=== PATIENT | female | born 1990 | race Caucasian/White ===

== ENCOUNTER 2020-08-09 14:11 | Outpatient (RCR) | payer OTHER, SELFPAY ==
[2020-07-05 16:35] LABS: Add Urine Microscopic? YES; Appearance Urine Cloudy (Clear); Bacteria Urine Trace /hpf; Bilirubin Urine Negative (Negative); Blood Urine Negative (Negative); Color Urine Straw (Yellow); Glucose Urine UA Negative (Negative); Ketones Urine Negative (Negative); Leukocyte Esterase Ur Negative LEU/UL (Negative); Nitrate Urine Negative (Negative); Protein Urine Negative (Negative); Squamous Epithelial Cell Urine Many /hpf (Few); Urobilinogen Urine Negative mg/dL (<2.0); WBC Urine 0-3 /hpf
[2020-07-05 16:48] LABS: Specific Grav Ur 1.004 (1.001-1.035)
[2020-07-05 16:54] LABS: Fetal Fibronectin Negative
[2020-07-22 14:39] VITALS: BP 112/69; PULSE 75
--- NOTE | ~2020-08-09 | US_ITS ---
US OB limited 08/09/2020 15:40 Indication: decelerations. Procedure: Realtime limited transabdominal obstetrical ultrasound Comparison: Ultrasound dated 07/05/2020 Findings: There is a single living intrauterine in vertex presentation. Placenta is posteri or without previa. heart rate is 141 BPM. Amniotic fluid is normal with AL measuring 13.95 cm (normal range for gestational age is 7.3-23.9 cm). Impression: 1: Single living intrauterine in vertex presentation. 2: Normal AL measures 13.95 cm. Reviewed, dictated and finalized at location A. Impression: 1: Single living intrauterine in vertex presentation. 2: Normal AL measures 13.95 cm.
--- NOTE | ~2020-08-09 | US_ITS ---
EXAMINATION: US OB limited DATE: 07/05/2020 16:34 INDICATION: Change in heart rate during third trimester . Assess amniotic fluid index. TECHNIQUE: Real-time ultrasound of the pelvis was performed. The interpreting radiologist was not pre sent for the study. COMPARISON: None. FINDINGS: There is a single living fetus in vertex presentation. The placenta is posterior. heart rate i s 139 beats per minute (bpm). The amniotic fluid index is 18.3 cm, which is normal (5th%-95%: 8.3-24. 5 cm at 33 weeks estimated gestational age) . IMPRESSION: 1. Single living fetus in vertex presentation with heart rate of 139 bpm. 2. Normal amniotic fluid index of 18.3 cm. Reviewed, dictated and finalized at location A. IMPRESSION: 1. Single living fetus in vertex presentation with heart rate of 139 bpm . 2. Normal amniotic fluid index of 18.3 cm.
== END 2020-08-16 07:47 | disposition home or self-care (01) ==
LOC: ANHOBOP 14:11
PROVIDERS: PCP Family Medicine Adolescent Medicine; Visit Provider Obstetrics & Gynecology
DX: O36.8330 Maternal care for abnormalities of the fetal heart rate or rhythm, third trimester, not applicable or unspecified (principal); Z3A.33 33 weeks gestation of pregnancy; O36.8930 Maternal care for other specified fetal problems, third trimester, not applicable or unspecified; Z3A.35 35 weeks gestation of pregnancy; Z3A.38 38 weeks gestation of pregnancy
CPT/HCPCS: 59025; 76815; 81001; 82731

== ENCOUNTER 2020-08-15 22:19 | Inpatient (IN) | payer OTHER, SELFPAY ==
--- NOTE | 2020-08-15 22:19 | LDADM ---
This patient, Susu Horn, was admitted to Labor/Delivery/Recovery 107 on 08/15/20 at 22:19. Plans for labor, pain management and were discussed with patient. Patient/family oriented to hospital policies and general routines including ID bracelet, bed and alarms, visiting hours, pain management, procedures, bathroom and other care routines, personal items, smoking policy, room service/diet and guest tray routines, security routines, and visiting hours. Patient/Family are encouraged to report perceived risks to care and to ask questions if they do not understand what they are told or what they should do. See OBIX for further documentation.
[2020-08-15 22:41] VITALS: RESP 20; TEMP 36.6
[2020-08-15 22:46] VITALS: BP 121/88; PULSE 77
[2020-08-15 22:54] VITALS: BMI 25.9
[2020-08-15 23:07] VITALS: BP 142/81; PULSE 61
[2020-08-15 23:16] VITALS: BP 145/78; PULSE 64
[2020-08-15 23:18] LABS: Basophils Percent Auto 0.3 % (0.2-1.2); Eosinophils Absolute Auto 0.1 K/mm3 (0-0.3); Eosinophils Percent Auto 0.5 % (0-4.4); Hematocrit 35.8 % (37.0-47.0); Hemoglobin 12.4 g/dL (12.0-15.0); Immature Granulocyte Absolute 0.16 K/mm3 (0.00-0.031); Immature Granulocyte Percent A 1.1 % (0-0.5); Lymphocytes Absolute Auto 2.65 K/mm3 (0.9-3.2); Mean Corpuscular HGB Conc 34.6 g/dl (32-36); Mean Corpuscular Hemoglobin 30.8 pg (26-34); Mean Corpuscular Volume 89.1 fl (80-100); Mean Platelet Volume 9.5 fl (7.4-10.4); Monocytes Absolute Auto 1.1 K/mm3 (0.1-0.6); Monocytes Percent Auto 7.3 % (2.6-8.5); Neutrophils Absolute Auto 10.7 K/mm3 (1.3-6.7); Neutrophils Percent Auto 72.8 % (45.5-73.1); Platelet Count Result 277 k/mm3 (150-375); Red Blood Count 4.02 M/mm3 (4.2-5.4); Red Cell Distribution Width 12.7 % (11.5-14.5); White Blood Count 14.7 K/mm3 (4.5-10.0)
[2020-08-15 23:30] VITALS: TEMP 36.9
[2020-08-16] VITALS (61 sets, daily range): BP systolic 61–135; BP diastolic 34–113; PULSE 52–188; RESP 16–20; TEMP 36.4–37.6; O2SAT 95–100
[2020-08-16] MEDS: LACTATED RINGERS 1,000 ML 125 ML IV CONT ×2 (01:16→01:40)
--- NOTE | 2020-08-16 01:20 | WPDANESEPPF ---
Anes - Initial Pre Proc Eval Procedure: labor epidural Date/Time: 08/16/20 01:20 Surgeon: Sherwin Donnelly MD Pre Op Diagnosis: labor pain Pre Op Diagnosis: Leaking fluid Patient Data Age: 29 Gender: F Height: 1.7 m Weight: 75 kg Last Vital Signs Temp 36.9 C 08/15/20 23:30 Pulse 53 L 08/16/20 01:19 Resp 20 08/15/20 22:41 BP 126/73 08/16/20 01:19 Allergies Allergy/AdvReac Type Severity Reaction Status Date / Time No Known Allergies Allergy Mild Verified 08/09/20 13:26 Home Medications Medication Instructions Recorded Confirmed Type prenat.vits,fahad,zmz-[id number] 1 tablet PO DAILY 12/30/19 08/15/20 History calcium carbonate 260 mg calcium 520 mg PO DAILY tablet 06/21/20 08/15/20 History (650 mg) chewable tablet Laboratory Tests 08/15/20 08/15/20 23:03 23:03 WBC 14.7 K/mm3 H K/mm3 (4.5-10.0) RBC 4.02 M/mm3 L M/mm3 (4.2-5.4) Hgb 12.4 g/dL g/dL (12.0-15.0) Hct 35.8 % L % (37.0-47.0) MCV 89.1 fl fl (80-100) MCH 30.8 pg pg (26-34) MCHC 34.6 g/dl g/dl (32-36) RDW 12.7 % % (11.5-14.5) Plt Count 277 k/mm3 k/mm3 (150-375) MPV 9.5 fl fl (7.4-10.4) Immature Gran % (Auto) 1.1 % H % (0-0.5) Neut % (Auto) 72.8 % % (45.5-73.1) Lymph % (Auto) 18.0 % L % (18.3-44.2) [place] % (Auto) 7.3 % % (2.6-8.5) Eos % (Auto) 0.5 % % (0-4.4) Baso % (Auto) 0.3 % % (0.2-1.2) Lymph # (Auto) 2.65 K/mm3 K/mm3 (0.9-3.2) [place] # (Auto) 1.1 K/mm3 H K/mm3 (0.1-0.6) Eos # (Auto) 0.1 K/mm3 K/mm3 (0-0.3) Baso # (Auto) 0.0 K/mm3 K/mm3 (0.0-0.1) Abs Immat Gran (auto) 0.16 K/mm3 H K/mm3 (0.00-0.031) Absolute Neuts (auto) 10.7 K/mm3 H K/mm3 (1.3-6.7) Absolute Nucleated RBC 0.0 K/mm3 K/mm3 (0.0-0.012) Nucleated RBC % 0.0 % % (0.0-0.2) RPR Pending Patient hx anesthesia problems: none Family hx anesthesia problems: none PMFSH Past Medical History Medical History History of vaginal delivery x 1 Miscarriage x1 Surgical History Surgical History [place] teeth extracted Family History Family History Grandparent Carcinoma of colon Lung cancer Social History Social History Smoking status: Never smoker Alcohol intake: never Substance use: never Substance use type: marijuana Gender identity (if verbalized by the patient): Female Spiritual care concerns: No Anes - Eval Final PreProcedure Day of Procedure 08/16/20 01:20 Patient weight: overweight ASA classification: II Anesthesia type and monitoring: regional epidural Informed Consent: The patient's anesthetic plan and its attendant risks and benefits were discussed with the patient/family/POA. Questions were solicited and answers provided to the satisfaction of the patient/family/POA.
[2020-08-16] MEDS: OXYTOCIN 30 UNITS/NS 500 ML 30 UNITS/500 ML BAG 999 UNITS IV CONT (03:32)
[2020-08-16] MEDS: OXYTOCIN 30 UNITS/NS 500 ML 30 UNITS/500 ML BAG 125 UNITS IV CONT (04:08)
[2020-08-16] MEDS: WITCH HAZEL 40 PADS 1 PAD TOPICAL (05:36)
[2020-08-16] MEDS: BENZOCAINE 20% AER SPR (*SP) 56 GM CAN 1 SPRAY TOPICAL (05:36)
--- NOTE | 2020-08-16 06:15 | PC.NURSE ---
Patient transferred to post room #286 via wheelchair. Support person present. Oriented to unit, room, information board, rooming in, admission packet and security measures. Patient verbalizes understanding.
[2020-08-16 07:00] LABS: Rapid Plasma Reagin Non-Reactive (NonReactive)
--- NOTE | 2020-08-16 07:15 | PC.NURSE ---
Mother called out for assist with feeding. Mother reports infant was eager for first feeding. Mother's 1st was 34 weeks, she breast and bottle fed infant. Reviewed infant feeding cues, frequencies, duration of feedings, feeding elimination flow sheet, and signs of adequate intake. Demonstrated stimulation techniques to wake infant for feeding. Assisted with infant to breast. Reviewed positioning/alignment in cross cradle, holding breast in ?U? hold and guided asymmetrical latch on. Infant able to latch correctly. Reviewed signs of a correct latch, effective nursing and suck swallow ratio. Infant was able to maintain latch without discomfort to mother. would slip to shallow latch, mother reports tenderness. Demonstrated how to adjust latch more deeply while feeding. Mother reports she can feel change in latch and has no tenderness. Nipple care reviewed of lanolin after feedings, warm compresses as needed. Suggested mother stimulate while feeding to increase stimulate, increase intake and to assist with maintaining deep latch. Instructed mother to call out for RN assistance if she is unable to latch for feeding or she has discomfort with nursing. Instructed feeding should be initiated three hours from start of last feeding or if feeding cues are noted before. Mother voiced understanding of information shared.
[2020-08-16] MEDS: MULTIVIT/MIN/PREN/FOL AC/IRON TABLET 1 TAB PO (07:22)
[2020-08-16] MEDS: IBUPROFEN 600 MG TABLET PO ×2 (07:22→16:29)
--- NOTE | 2020-08-16 12:57 | PM.IMHP ---
H&P: HPI History of Present Illness Date/Time: 08/16/20 12:57 Pt admitted for SROM clear fluid. Cervix on admission 3/75%/-2. She is 39 weeks by LMP which was consistent with first trimester ultrasound. PNC significant for history of PPROM with prior at 33 weeks. She had surveillance with ultrasound in second trimester which her cervix was reassuring. Labs reviewed. GBS neg. Chief Complaint: Contractions and leaking of fluid Review of Systems Review of Systems: All systems reviewed & are unremarkable except as noted in HPI and below Constitutional: Constitutional: Reports no additional constitutional complaints and Denies headache(s) Eyes: Eyes: Denies spots in vision ENT: Reports system reviewed and no additional complaints, except as documented and Denies headache(s) Cardiovascular: Cardiovascular: Denies chest pain and Denies dyspnea Respiratory: Respiratory: Denies dyspnea Gastrointestinal: Gastrointestinal: Reports no additional gastrointestinal complaints Genitourinary: Genitourinary: Reports amenorrhea Musculoskeletal: Musculoskeletal: Reports no additional musculoskeletal complaints Integumentary/Breasts: Skin/Breast: Denies breast mass and Denies rash Neurologic: Denies headache(s) Psychiatric: Psychiatric: Reports no additional psychiatric complaints [facility] Past Medical History Medical History History of vaginal delivery x 1 Miscarriage x1 Surgical History Surgical History [place] teeth extracted Family History Family History Grandparent Carcinoma of colon Lung cancer Social History Social History Smoking status: Never smoker Alcohol intake: never Substance use: never Substance use type: marijuana Gender identity (if verbalized by the patient): Female Spiritual care concerns: No Meds Home Medications and Allergies Home Medications Medication Instructions Recorded Confirmed Type prenat.vits,fahad,yde-aups-pisac 1 tablet PO DAILY 12/30/19 08/15/20 History calcium carbonate 260 mg calcium 520 mg PO DAILY tablet 06/21/20 08/15/20 History (650 mg) chewable tablet Allergies Allergy/AdvReac Type Severity Reaction Status Date / Time No Known Allergies Allergy Mild Verified 08/09/20 13:26 Vital Signs Vital Signs - 24 hr 08/15/20 22:41 08/15/20 22:46 08/15/20 23:07 Temperature 97.9 F Pulse Rate 77 61 Respiratory Rate 20 Blood Pressure 121/88 142/81 H Pulse Oximetry 08/15/20 23:16 08/15/20 23:30 08/16/20 00:10 Temperature 98.4 F Pulse Rate 64 60 Respiratory Rate Blood Pressure 145/78 H 131/77 Pulse Oximetry 08/16/20 01:19 08/16/20 01:27 08/16/20 01:29 Temperature Pulse Rate 53 L 59 L Respiratory Rate Blood Pressure 126/73 125/77 Pulse Oximetry 97 08/16/20 01:30 08/16/20 01:31 08/16/20 01:32 Temperature Pulse Rate 64 60 Respiratory Rate Blood Pressure 126/82 135/71 Pulse Oximetry 100 08/16/20 01:34 08/16/20 01:35 08/16/20 01:37 Temperature Pulse Rate 61 63 52 L Respiratory Rate Blood Pressure 121/85 114/70 125/69 Pulse Oximetry 100 08/16/20 01:40 08/16/20 01:42 08/16/20 01:43 Temperature Pulse Rate 60 54 L Respiratory Rate Blood Pressure 131/69 127/73 Pulse Oximetry 99 08/16/20 01:46 08/16/20 01:47 08/16/20 01:49 Temperature 98.1 F Pulse Rate 55 L 55 L 55 L Respiratory Rate Blood Pressure 122/77 122/77 126/72 Pulse Oximetry 100 08/16/20 01:52 08/16/20 01:55 08/16/20 01:57 Temperature Pulse Rate 54 L 57 L Respiratory Rate Blood Pressure 118/72 115/73 Pulse Oximetry 99 99 08/16/20 01:58 08/16/20 02:01 08/16/20 02:02 Temperature Pulse Rate 58 L 68 Respiratory Rate Blood P
--- NOTE | 2020-08-16 13:25 | PC.NURSE ---
Observed mother is able to independently latch with appropriate positioning/alignment. She denies any nipple discomfort, is nursing eagerly with steady draws. Mother will stimulate to keep awake and nursing effectively. Instructed mother to call out for future feedings if assistance is needed.
--- NOTE | 2020-08-16 14:16 | PM.OBPRVD ---
OB - Delivery Note Procedure Delivery date: 08/16/20 Procedure: Spontaneous vaginal delivery Induction method: none Delivery monitor: external FHT Route of delivery: Laceration Description: Perineal - 1st Degree Delivery repair: vicryl (3.0 vicryl) Specimen: Yes (Cord blood and gases) Quantitative Blood Loss (ml): 150 Anesthesia type: Epidural Disposition: floor Complications: none Narrative: patient admitted in active labor with spontaneous rupture of membranes clear. Her cervix on admission was 3 cm dilated and 80% effaced. She progressed to complete. With pushing she did have some early deceleration she did get some oxygen and she delivered a male there was a tight nuchal cord x1 surgically reduced. infant was vigorously crying upon delivery and placed on maternal abdomen. Cord blood was obtained and cord gases obtained. Placenta delivered spontaneously and intact. She sustained a small first-degree perineal laceration repaired with several simple stitches of 3 O Vicryl. Baby Date of : 08/16/20 Time of : 03:27 Weeks of gestation at delivery: 39 gender: Male Weight (pounds): 7 Weight (ounces): 14 presentation: vertex position: Left Occiput Anterior Placenta delivery description: Spontaneous cord vessel description: Nuchal Cord ( x1) and Tight ( surgically reduced) score one minute: 8 score five minutes: 9
[2020-08-17 01:00] VITALS: BP 119/69; PULSE 71; RESP 16; TEMP 36.7
[2020-08-17] MEDS: IBUPROFEN 600 MG TABLET PO ×2 (04:40→11:30)
[2020-08-17 05:58] LABS: Hematocrit 30.3 % (37.0-47.0); Hemoglobin 10.3 g/dL (12.0-15.0)
--- NOTE | 2020-08-17 07:25 | WPDANLDPN2 ---
Anes-Prog Note L&D Date/Time: 08/17/20 07:25 Comfortable throughout: labor and delivery Neuraxial method: epidural Epidural/Spinal procedure site: clean & non-tender Neuro status: Neuro function grossly intact. Cardiovascular status: normal Respiratory status: normal Airway patency: baseline Mental status: baseline Post-Op hydration status: normal Vital Signs: Last Vital Signs Temp 36.7 C 08/17/20 01:00 Pulse 71 08/17/20 01:00 Resp 16 08/17/20 01:00 BP 119/69 08/17/20 01:00 Pulse Ox 99 08/16/20 16:15 Pain score (VAS): 03/26 Post-procedural complaints: none Patient feedback: Patient satisfied with anesthetic care.
[2020-08-17 08:00] VITALS: BP 112/72; BP 119/69; PULSE 56; PULSE 71; RESP 16; RESP 18; TEMP 36.5; TEMP 36.7; O2SAT 99
[2020-08-17] MEDS: DOCUSATE SODIUM 100 MG CAPSULE PO (08:23)
[2020-08-17] MEDS: WITCH HAZEL 40 PADS 1 PAD TOPICAL (08:23)
[2020-08-17] MEDS: MULTIVIT/MIN/PREN/FOL AC/IRON TABLET 1 TAB PO (08:23)
[2020-08-17] MEDS: BENZOCAINE 20% AER SPR (*SP) 56 GM CAN 1 SPRAY TOPICAL (08:23)
--- NOTE | 2020-08-17 09:30 | PC.NURSE ---
Patient was given the opportunity to view the discharge video Mother & Baby Care, The First Two Weeks and to ask questions. Patient declined viewing the video and has been given the mother/baby guide for home reference.
--- NOTE | 2020-08-17 10:03 | PC.NURSE ---
Self care and infant care discharge instructions given including follow up visit date and time. Mother verbalized understanding. No questions or concerns voiced. Very pleasant and cooperative. FOB at side.
--- NOTE | 2020-08-17 12:15 | PC.NURSE ---
Observed mother is able to independently latch with appropriate positioning/alignment. She denies any nipple discomfort, is feeding as required and waking to feed if needed. nurses eagerly with long rhythmic draws and frequent swallowing noted. Motheris feeding as required and waking to feed if needed. has had at least 8 effective feedings in the past 24 hours, and is currently meeting outcomes for weight, output, jaundice and feeding frequencies. Mother states she feels confident to continue effective at home. Reviewed transition to breast milk, signs of adequate intake, and engorgement/relief. Instructed to call ICP if intake/output less than required. Reviewed regular medications mother is taking. Information provided per [place]. Reviewed community resources on the [facility] website and in the Mom/Baby guide. Information on outpatient services provided. Mother has no further questions at this time.
[2020-08-18 10:55] VITALS: BP 118/67; PULSE 63; RESP 16; TEMP 36.6; O2SAT 99
--- NOTE | 2020-09-13 00:02 | PM.OBDSVD ---
DS: Admitting Diagnosis Admitting Diagnosis Admitting Diagnosis: Spontaneous rupture of membrane. DS: Discharge Diagnosis Discharge Diagnosis (1) Delivery normal: Code(s): O80 - Encounter for full-term uncomplicated delivery Status: Acute OB - DS: Summary Hospital Course Hospital Course: Patient was admitted after confirmed spontaneous rupture of membranes. She progressed into active labor and had a vaginal delivery. she did well. course uncomplicated. She was discharged to home on day 2. She was ambulating well. Tolerating regular food and had adequate pain control. OB Procedures : Ultrasound OB Procedures Intrapartum: Spontaneous Vag Delivery OB Procedures: : None Peripartum Data Delivery Method: Natural Vaginal Laceration Description: Perineal - 1st Degree complications: none Status at Discharge Functional status at discharge: independent ambulation Time Spent with Patient Time attestation: Total time spent providing and/or coordinating discharge services: Exam Const: General: cooperative HENMT: General nose exam: Normal external nose present Eyes: General: appearance normal, both eyes and all related structures Resp: Effort & Inspection: normal respiratory effort GI: Inspection: normal to inspection Skin: General skin exam: normal color Neuro: General: oriented to person, oriented to place and oriented to time Extrem: General: normal to inspection and no calf tenderness Psych: Appearance: grossly normal Mental Status: mental status grossly normal Discharge Plan Discharge Attending physician on discharge: Sherwin Donnelly Consulting providers: Malcom Davis Discharging Clinician: Sherwin Donnelly Anticipated Discharge Date/Time: 08/17/20 11:02 Patient Disposition: Home, Self-Care Activity: no straining and pelvic rest Diet: regular Discharge Instructions: Education: Mom and Baby Guide Given to: Mother Follow-Up: Call your delivering provider's office for an appointment to be seen in: 4 Weeks Mom and baby should come to the [facility] for the follow-up appointment. Appointment Date/Time: Tuesday August 18, 2020 at 11:00 am What to expect at your follow-up visit: Blood Pressure Check Physical Assessment Call [phone] if you are unable to keep your appointment time. BREAST CARE: * Wear a snug supportive bra. * For engorgement discomfort: Breast Feeding: * Apply warm moist washcloths * Express milk as needed to relieve engorgement * Wear loose clothing * For sore nipples: * Identify correct latch-on * Apply warm moist washcloths before and after nursing * Air dry nipples after nursing * May apply Lansinoh cream to nipples EPISIOTOMY/PERINEAL CARE * Until bleeding stops, use your greyson bottle after urinating * Change your pad frequently throughout the day * You may take sitz baths several times a day (fill your bathtub with warm water and soak for 20 minutes.) Do NOT bathe in the water * No tub baths until seen by your physician - You may shower ACTIVITY: * Rest as much as possible. * Do not exercise or lift anything heavier than your baby (such as laundry or other children.) * Avoid stairs or driving as much as possible. * Do not put anything into the vagina. No douching, tampons, or sexual activity until seen by physician. NOTIFY PHYSICIAN IF YOU HAVE ANY QUESTIONS OR IF ANY OF THE FOLLOWING SYMPTOMS OCCUR: * If your episiotomy becomes red, swollen, or more painful than what you have experienced in the hospital. * If your vaginal bleeding becomes foul smelling. * If your vaginal bleeding becomes more heavy than a period or if your bleeding changes from pink to bright red. However, you may pass an occasional walnut-sized clot once or twice for the first week . * If
== END 2020-08-17 14:23 | disposition home or self-care (01) | DRG 807 ==
LOC: ANHLDR 22:55 → ANHOB2 08-16 06:17
PROVIDERS: Admitting Provider Obstetrics & Gynecology; PCP Family Medicine Adolescent Medicine; Visit Provider Obstetrics & Gynecology
DX: O69.1XX0 Labor and delivery complicated by cord around neck, with compression, not applicable or unspecified (principal); Z37.0 Single live birth; O70.0 First degree perineal laceration during delivery; Z3A.39 39 weeks gestation of pregnancy
CPT/HCPCS: 36415; 84112; 85014; 85018; 85025; 86592; 86850; 86900; 86901; A9270; J2590; J7120

== ENCOUNTER 2021-05-28 10:33 | Outpatient (CLI) | payer OTHER, SELFPAY ==
--- NOTE | ~2021-05-28 | US_ITS ---
EXAMINATION: US OB follow up DATE: 05/28/2021 11:30 INDICATION: Hemorrhage. Early . Gestational dating. TECHNIQUE: Real-time transabdominal obstetric ultrasound. FINDINGS: No prior studies for comparison. There is a single living fetus in transverse presentation. The placenta is fundal/posterior without placenta previa. cardiac activity and movement is noted with a heart rate of 157 beats per minute. T he amniotic fluid volume is subjectively normal. The following biometric data were obtained: BPD: 33mm corresponds to gestational age 16 weeks 2 days. Head circumference: 124mm corresponds to gestational age 16 weeks 2 days. Abdominal circumference: 104mm corresponds to gestational age 16 weeks 3 days. Femur length: 18mm corresponds to gestational age 15 weeks 3 days. Estimated weight: 141grams +/- 21grams.] IMPRESSION: 1. Single living intrauterine in transverse presentation with an estimated gestational age of 16 weeks 1 days by current ultrasound. EDC by current examination is 11/11/2021. 2. Normal placenta. Reviewed, dictated and finalized at location B. IMPRESSION: 1. Single living intrauterine in transverse presentation with an est imated gestational age of 16 weeks 1 days by current ultrasound. EDC by current examination is 11/11/2021. 2. Normal placenta.
== END 2021-05-28 10:34 | disposition home or self-care (01) ==
PROVIDERS: PCP Family Medicine Adolescent Medicine; Visit Provider Obstetrics & Gynecology
DX: O20.9 Hemorrhage in early pregnancy, unspecified (principal); Z3A.16 16 weeks gestation of pregnancy
CPT/HCPCS: 76816

== ENCOUNTER 2021-10-25 08:35 | Outpatient (RCR) | payer OTHER, SELFPAY ==
[2021-10-22 13:02] VITALS: BP 110/72; PULSE 81
--- NOTE | 2021-10-22 14:06 | PC.NURSE ---
1405- Spoke with Dr. Donnelly, AL 6.7, orders for patient to come back on for a repeat AL and NST.
--- NOTE | ~2021-10-25 | US_ITS ---
US OB limited DATE: 10/25/2021 09:46 INDICATION: Low amniotic fluid volume. Major AL. TECHNIQUE: Real-time imaging and Doppler analysis COMPARISON: 10/22/2021 Limited obstetrical ultrasound examination FINDINGS: Live chauhan intrauterine gestation, fetus in vertex presentation with heart rate of 135 bpm. Fundal placenta. Amniotic fluid index measures 7.0 cm, which is below the 5th percentile of 7.5 cm. IMPRESSION: Amniotic fluid index measures 7.0 cm, which is below the 5th percentile AL of 7.5 cm Reviewed, dictated and finalized at Location A. Reviewed, dictated and finalized at location B. IMPRESSION: Amniotic fluid index measures 7.0 cm, which is below the 5th percen tile AL of 7.5 cm
--- NOTE | ~2021-10-25 | US_ITS ---
US OB limited DATE: 10/22/2021 13:43 INDICATION: Low heart rate in office. TECHNIQUE: Real-time imaging and Doppler analysis COMPARISON: 05/28/2021 obstetrical ultrasound FINDINGS: Live chauhan intrauterine gestation, fetus in longitudinal lie, vertex presentation, with heart rate of 157 bpm. Fundal placenta. Amniotic fluid index measures 6.7 cm, below the 5th percentile of 7.5 cm. IMPRESSION: Amniotic fluid index 6.7 cm, below the 5th percentile of 7.5 cm heart rate of 157 bpm Reviewed, dictated and finalized at Location A. Reviewed, dictated and finalized at location B.
[2021-10-25 09:23] VITALS: BP 101/70; PULSE 97
--- NOTE | 2021-10-25 10:02 | PC.NURSE ---
AL=7. Called reported NST and AL results. states she will see pt in office for regular appt. No further NST or US ordered at this time.
== END 2021-12-12 10:06 | disposition home or self-care (01) ==
LOC: ANHOBOP 08:35
PROVIDERS: PCP Family Medicine Adolescent Medicine; Visit Provider Obstetrics & Gynecology
DX: O36.8330 Maternal care for abnormalities of the fetal heart rate or rhythm, third trimester, not applicable or unspecified (principal); Z3A.37 37 weeks gestation of pregnancy
CPT/HCPCS: 59025; 76815

== ENCOUNTER 2021-11-01 12:33 | Observation (INO) | payer OTHER, SELFPAY ==
[2021-11-01] VITALS (8 sets, daily range): BP systolic 107–126; BP diastolic 69–80; PULSE 80–87; TEMP 37
--- NOTE | ~2021-11-01 | US_ITS ---
EXAMINATION: US OB limited DATE: 11/01/2021 14:21 INDICATION: Oligohydramnios. Third trimester. TECHNIQUE: Real-time ultrasound of the pelvis was performed. COMPARISON: Ultrasound 10/25/2021 FINDINGS: There is a single fetus in vertex presentation. The placenta is fundal. heart rate is 136 beat s per minute (bpm). The amniotic fluid index is 9.5 cm, which is normal. IMPRESSION: 1. Single living fetus in vertex presentation. 2. Normal amniotic fluid index. Reviewed, dictated and finalized at location A.
--- NOTE | 2021-11-01 13:30 | OBADM ---
This patient, Susu Horn, admitted to the OB room Labor/Delivery/Recovery 107 for observation. Patient/family oriented to hospital policies and general routines including ID bracelet, bed and alarms, visiting hours, pain management, procedures, bathroom and other care routines, personal items, smoking policy, room service/diet, and visiting hours. Patient/Family are encouraged to report perceived risks to care and to ask questions if they do not understand what they are told or what they should do.
--- NOTE | 2021-11-23 14:52 | PM.OBTRLD ---
OB - Triage/Final Diagnosis Visit Information Comments/Additional reasons for admission: I have assessed the risk for this patient, Susu Horn, and determined that she would benefit from observation care. Final Diagnosis (1) Vaginal discharge during : Code(s): O26.899 - Other specified related conditions, unspecified trimester; N89.8 - Other specified noninflammatory disorders of vagina Status: Acute
== END 2021-11-01 16:41 | disposition home or self-care (01) ==
PROVIDERS: Admitting Provider Student in an Organized Health Care Education/Training Program; PCP Family Medicine Adolescent Medicine; Visit Provider Student in an Organized Health Care Education/Training Program
DX: O26.893 Other specified pregnancy related conditions, third trimester (principal); N89.8 Other specified noninflammatory disorders of vagina; Z3A.38 38 weeks gestation of pregnancy
CPT/HCPCS: 76815; 84112; G0378; G0379

== ENCOUNTER 2021-11-14 16:01 | Inpatient (IN) | payer OTHER, SELFPAY ==
--- NOTE | 2021-11-01 17:23 | PC.NURSE ---
Preadmission information entered on 10/12/21 by Casey Holley RN copied to this V#.
[2021-11-14] VITALS (12 sets, daily range): BP systolic 101–132; BP diastolic 71–93; PULSE 58–85; RESP 18; TEMP 36.8; BMI 25.9
[2021-11-14] MEDS: OXYTOCIN 30 UNITS/NS 500 ML 30 UNITS/500 ML BAG 999 UNITS IV CONT (16:34)
[2021-11-14] MEDS: fentaNYL CITRATE INJ (*CRX) 100 MCG/2 ML VIAL 50 MCG IV PUSH (16:42)
--- NOTE | 2021-11-14 16:50 | PM.IMHP ---
H&P: HPI History of Present Illness Date/Time: 11/14/21 16:50 Chief Complaint: Delivery Narrative: She is a at 40 3/7 weeks by 16 week ultrasound admitted via ambulance after home delivery. She had SROM at 1245 clear fluid. She then started having strong contractions 2 hours afterward and had delivery at home. was crying spontaneously. Placenta was still inutero on arrival. Review of Systems Review of Systems: All systems reviewed & are unremarkable except as noted in HPI and below Constitutional: Constitutional: Reports no additional constitutional complaints and Denies headache(s) Eyes: Eyes: Denies spots in vision ENT: Reports system reviewed and no additional complaints, except as documented and Denies headache(s) Cardiovascular: Cardiovascular: Denies chest pain and Denies dyspnea Respiratory: Respiratory: Denies dyspnea Gastrointestinal: Gastrointestinal: Reports no additional gastrointestinal complaints Genitourinary: Genitourinary: Reports amenorrhea Musculoskeletal: Musculoskeletal: Reports no additional musculoskeletal complaints Integumentary/Breasts: Skin/Breast: Denies breast mass and Denies rash Neurologic: Denies headache(s) Psychiatric: Psychiatric: Reports no additional psychiatric complaints PMFSH Past Medical History Medical History History of vaginal delivery x 1 Miscarriage x1 Surgical History Surgical History [place] teeth extracted Family History Family History Grandparent Carcinoma of colon Lung cancer Social History Social History Smoking status: Never smoker Alcohol intake: never Substance use: never Substance use type: marijuana Gender identity (if verbalized by the patient): Female Spiritual care concerns: No Meds Home Medications and Allergies Home Medications Medication Instructions Recorded Confirmed Type calcium carbonate 500 mg calcium 500 mg PO DAILY 09/12/20 11/08/21 History (1,250 mg) chewable tablet (Calcium 500) prenat.vits,fahad,jfn-aonc-apsuz 1 tablet PO DAILY 09/12/20 11/08/21 History Allergies Allergy/AdvReac Type Severity Reaction Status Date / Time No Known Allergies Allergy Mild Verified 11/08/21 11:24 Vital Signs Vital Signs - 24 hr 11/14/21 16:11 11/14/21 16:16 11/14/21 16:32 Pulse Rate 66 60 84 Blood Pressure 132/84 131/79 101/71 11/14/21 16:46 Pulse Rate 85 Blood Pressure 121/79 Exam Const: General: no acute distress Eyes: General: appearance normal, both eyes and all related structures Resp: Effort & Inspection: normal respiratory effort Cardio: Rate: regular rate GI: Other: Gravid no fundal tenderness no right upper quadrant pain : External Female Exam: normal external appearance Speculum Exam - Vagina: normal appearance of the vagina Skin: General skin exam: no rashes or lesions noted Neuro: Cognition (Neuro): normal cognition Extrem: General: normal to inspection Psych: Mental Status: mental status grossly normal Assessment and Plan Assessment and plan (1) Delivery normal: Code(s): O80 - Encounter for full-term uncomplicated delivery Status: Acute Assessment and Plan: Admit Delivery of placenta. Anticipate routine care.
--- NOTE | 2021-11-14 16:50 | PM.OBPRVD ---
OB - Delivery Note Procedure Delivery date: 11/14/21 Procedure: spontaneous vaginal delivery Events: Other (unplanned home delivery) Induction method: None Delivery monitor: None Route of delivery: Episiotomy description: None Laceration Description: None Specimen: No Quantitative Blood Loss (ml): 250 Anesthesia type: None Disposition: Floor Complications: None Narrative: Patient admitted to L and D via ambulance after home delivery. Placenta was in utero. Cord blood obtained. The placenta delivered with expression and fundal massage and was intact. IV Pitocin started. She had residual increased lochia. Uterine tone firm. Due to mod lochia, after IV Fentanyl given, retractor was placed in the vagina, the cervix was inspected for lacerations, no lacerations visualized, bleeding improved. Uterine fundus remained firm. She tolerated procedure well. Baby Date of : 11/14/21 Time of : 15:35 Weeks of gestation at delivery: 40 Infant gender: Male Weight (pounds): 8 Weight (ounces): 1 Placenta delivery description: Expressed Narrative: placenta 1634 [facility] Delivery Billing Delivery Delivery: Delivery Charge
[2021-11-14] MEDS: OXYTOCIN 30 UNITS/NS 500 ML 30 UNITS/500 ML BAG 125 UNITS IV CONT (17:05)
--- NOTE | 2021-11-14 17:36 | LDADM ---
This patient, Susu Horn, was admitted to Labor/Delivery/Recovery 106 on 11/14/21 at 16:01. Plans for labor, pain management and were discussed with patient. Patient/family oriented to hospital policies and general routines including ID bracelet, bed and alarms, visiting hours, pain management, procedures, bathroom and other care routines, personal items, smoking policy, room service/diet and guest tray routines, security routines, and visiting hours. Patient/Family are encouraged to report perceived risks to care and to ask questions if they do not understand what they are told or what they should do. See [facility]BIX for further documentation.
[2021-11-14 17:45] LABS: Hematocrit 32.7 % (37.0-47.0); Hemoglobin 11.4 g/dL (12.0-15.0); Mean Corpuscular HGB Conc 34.9 g/dl (32-36); Mean Corpuscular Hemoglobin 31.2 pg (26-34); Mean Corpuscular Volume 89.6 fl (80-100); Mean Platelet Volume 9.4 fl (7.4-10.4); Platelet Count Result 286 k/mm3 (150-375); Red Blood Count 3.65 M/mm3 (4.2-5.4); Red Cell Distribution Width 13.2 % (11.5-14.5); White Blood Count 20.4 K/mm3 (4.5-10.0)
[2021-11-14] MEDS: IBUPROFEN 600 MG TABLET PO (17:46)
[2021-11-14 18:07] LABS: Band Neutrophils Percent 7 % (0-6); Lymphocytes Absolute Manual 1.42 K/mm3 (1.1-4.5); Monocytes Absolute Manual 0.61 K/mm3 (0.1-0.90); Monocytes Percent Manual 3 % (3-9); Neutrophils Absolute Manual 18.36 K/mm3 (1.7-7.2); Neutrophils Percent Manual 83 % (46-73); Platelet Estimate Adequate (Adequate); Total Cells Counted 100
[2021-11-14 18:54] LABS: Rubella IgG Antibody 7.2 IU/ML
[2021-11-14] MEDS: WITCH HAZEL 40 PADS 1 PAD TOPICAL (18:57)
[2021-11-14] MEDS: BENZOCAINE 20% AER SPR (*SP) 56 GM CAN 1 SPRAY TOPICAL (18:57)
--- NOTE | 2021-11-14 19:12 | PC.NURSE ---
Patient transferred to post room #285 per wheelchair from labor and delivery. Support person present. Oriented to unit, room, information board, rooming in, admission packet and security measures. Patient verbalizes understanding.
[2021-11-15] MEDS: IBUPROFEN 600 MG TABLET PO ×3 (00:44→15:00)
[2021-11-15 00:45] VITALS: BP 114/71; PULSE 59; RESP 16; TEMP 37.3
[2021-11-15 04:30] VITALS: BP 103/55; PULSE 69; RESP 16; TEMP 36.8
[2021-11-15 05:30] LABS: Hematocrit 29.1 % (37.0-47.0); Hemoglobin 9.9 g/dL (12.0-15.0)
[2021-11-15 08:00] VITALS: PULSE 64; RESP 18; O2SAT 100
[2021-11-15 08:15] VITALS: BP 112/70; PULSE 64; RESP 18; TEMP 36.6; O2SAT 100
--- NOTE | 2021-11-15 09:56 | PC.NURSE ---
0900 - 0907 Introductions were made, then consulted with patient to assess needs related to . Mother led the conversation with her?plans to feed?her infant and the?experience so far. Resources provided for inpatient and outpatient services using a resource guide and mom/baby guide. Mother voiced understanding of information and patient requested assistance. Mother attempted to latch and infant is sleepy. Mother held with the body dangling to the nipple and non-nutritive sucking was visualized with <90 latch. RN encouraged a deeper latch with wakefulness removing 's socks and having mom unwrap the infant bringing him closer to her body with good ear, shoulder, and hip alignment. Infant latched optimally to the right breast with good rocking motion and no pain to mother. Education given to mother of how to visualize suck/swallow ratios and listen for drinking at the breast. Infant was able to maintain latch without discomfort to mother. Nipple care reviewed with optimal latch, good positioning, and to have clean hands when touching the nipple/breast. Mother is feeding appropriately for growth of infant and understands stimulating to eat if needed. has had adequate feedings in the last 24 hours meets the outcomes for weight, output and jaundice at this time. Feeding infant 8-12 times in a 24 hour period for good milk production was reviewed. Reinforced understanding of milk production, transition of milk, signs of adequate intake, prevention/relief of engorgement, responsive after visualizing feeding cues, the different methods of stimulating infant to breastfeed 2-3 hours after the start of the last feeding, community resources, medication information reviewed per [employer] and when to call a provider using the resource of the mom and baby guide/[facility] website. Mother voiced understanding of the education shared. Reported to the primary RN.
[2021-11-15 11:56] VITALS: BP 112/69; PULSE 84; RESP 16; TEMP 36.8; O2SAT 99
[2021-11-15 12:00] VITALS: PULSE 84; RESP 16; O2SAT 99
[2021-11-15] MEDS: MEASLES,MUMPS,RUBELLA VACCINE 0.5 ML VIAL SUB-Q (17:34)
[2021-11-16 07:23] LABS: Rapid Plasma Reagin Non-Reactive (NonReactive)
[2021-11-16 08:55] VITALS: BP 116/79; PULSE 82; RESP 16; TEMP 37.2; O2SAT 99
--- NOTE | 2021-12-14 09:30 | PM.OBDSVD ---
DS: Admitting Diagnosis Discharge Date 11/15/21 Admitting Diagnosis Home delivery. Placenta in utero. DS: Discharge Diagnosis Discharge Diagnosis (1) Encounter for care after unplanned out of hospital delivery: Code(s): Z39.2 - Encounter for routine follow-up Status: Acute OB - DS: Summary Hospital Course Hospital Course: Patient was admitted to L and D after unplanned home . Placenta was still in utero on her arrival to hospital. Baby was doing well. Placenta was delivered on L and D. Patient did well. she did well. Baby did well . She was ambulating well, tolerating regular diet. She requested discharge to home on day 1. She had adequate pain control. Discharge precautions discussed. OB Procedures : Ultrasound OB Procedures Intrapartum: Other (home delivery) OB Procedures: : None Peripartum Data Infant Delivery Method: Natural Vaginal Laceration Description: None complications: none Status at Discharge Cognitive/behavioral status at discharge: stable Functional status at discharge: independent ambulation Time Spent with Patient Time attestation: Total time spent providing and/or coordinating discharge services: Exam Const: General: cooperative Orientation/consciousness: oriented to person, oriented to place and oriented to time HENMT: General nose exam: Normal external nose present Eyes: General: appearance normal, both eyes and all related structures Resp: Effort & Inspection: normal respiratory effort GI: Inspection: normal to inspection Skin: General skin exam: normal color Neuro: General: oriented to person, oriented to place and oriented to time Extrem: General: normal to inspection and no calf tenderness Psych: Appearance: grossly normal Mental Status: mental status grossly normal Discharge Plan Discharge Attending physician on discharge: Sherwin Donnelly Discharging Clinician: Sherwin Donnelly Anticipated Discharge Date/Time: 11/15/21 17:21 Patient Disposition: Home, Self-Care Activity: may shower and pelvic rest Diet: regular Wound Care Instructions: follow printed instructions Discharge Instructions: Education: Mom and Baby Guide Given to: Mother Follow-Up: Call your delivering provider's office for an appointment to be seen in: 4-6 Weeks Mom and baby should come to the [facility] for the follow-up appointment. Appointment Date/Time: November 16, 2021 at 9:00 am What to expect at your follow-up visit: Blood Pressure Check Physical Assessment Call [phone] if you are unable to keep your appointment time. BREAST CARE: * Wear a snug supportive bra. * For engorgement discomfort: Breast Feeding: * Apply warm moist washcloths * Express milk as needed to relieve engorgement * Wear loose clothing * For sore nipples: * Identify correct latch-on * Apply warm moist washcloths before and after nursing * Air dry nipples after nursing * May apply Lansinoh cream to nipples EPISIOTOMY/PERINEAL CARE: * Until bleeding stops, use your greyson bottle after urinating * Change your pad frequently throughout the day * You may take sitz baths several times a day (fill your bathtub with warm water and soak for 20 minutes.) Do NOT bathe in the water * No tub baths until seen by your physician - You may shower ACTIVITY: * Rest as much as possible. * Do not exercise or lift anything heavier than your baby (such as laundry or other children.) * Avoid stairs or driving as much as possible. * Do not put anything into the vagina. No douching, tampons, or sexual activity until seen by physician. NOTIFY PHYSICIAN IF YOU HAVE ANY QUESTIONS OR IF ANY OF THE FOLLOWING SYMPTOMS OCCUR: * If your vaginal area becomes red, swollen, or more painful than what you have experienced in the hos
== END 2021-11-15 18:20 | disposition home or self-care (01) | DRG 776 ==
LOC: ANHLDR 16:09 → ANHOB2 19:31
PROVIDERS: Admitting Provider Obstetrics & Gynecology; PCP Family Medicine Adolescent Medicine; Visit Provider Obstetrics & Gynecology
DX: Z39.0 Encounter for care and examination of mother immediately after delivery (principal)
CPT/HCPCS: 36415; 85014; 85018; 85025; 86592; 86762; 86850; 86900; 86901; 90710; A9270; J2590; J3010